=== PATIENT | male | born 1975 | race Two or more races ===

== ENCOUNTER 2023-03-12 15:37 | Emergency (ER) | payer OTHER ==
[~2023-03-12] VITALS: Ht 170.2 cm; Wt 77.3 kg
[2023-03-12 15:52] VITALS: TEMP 98.5
[2023-03-12] MEDS ORDERED: METOCLOPRAMIDE HCL 5 MG/ML 2 ML VIAL IVP ONE (16:15)
[2023-03-12] MEDS ORDERED: DiphenhydrAMINE HCL 50 MG/ML VIAL IVP ONE (16:15)
[2023-03-12] MEDS ORDERED: KETOROLAC TROMETHAMINE 30 MG/ML VIAL IVP ONE (16:15)
[2023-03-12] MEDS ORDERED: SODIUM CHLORIDE 0.9% 1,000 ML IV ONE (16:15)
[2023-03-12 18:15] VITALS: BP 101/59; PULSE 58; RESP 15
== END 2023-03-12 19:47 ==
LOC: EMS 15:41
DX: R51.9 Headache, unspecified (principal); I10 Essential (primary) hypertension
CPT/HCPCS: 99285; 96374; 96361; 70450; 96375; J1200; J1885; J2765; J7030